=== PATIENT | male | born 1955 | race Caucasian/White ===

== ENCOUNTER 2020-09-24 02:23 | Observation (INO) ==
[2020-09-24] MEDS ORDERED: Ondansetron 4 MG/2 ML VIAL IVP PRN (05:44)
[2020-09-24] MEDS ORDERED: Naloxone 0.4 MG/ML INJ IVP PRN (05:44)
[2020-09-24] MEDS ORDERED: Melatonin 3 MG TABLET PO PRN (05:44)
[2020-09-24] MEDS ORDERED: Acetaminophen 325 MG TABLET PO PRN (05:44)
[2020-09-24] MEDS ORDERED: *HR* HYDROcodone/Acet 5/325 mg TABLET PO PRN (06:00)
[2020-09-24] MEDS ORDERED: *HR* Dextrose 50 % in Water (Vial) 50 ML VIAL IVP PRN (06:05)
[2020-09-24] MEDS ORDERED: Dextrose Gel 15 GM/37.5 ML TUBE PO PRN ×2 (06:05)
[2020-09-24] MEDS ORDERED: D5% in Water 1,000 ML IVC PRN (06:05)
[2020-09-24 06:49] LABS: INR 3.2; Prothrombin Time 35.9 Seconds (9.4-12.1)
[2020-09-24] MEDS: Furosemide 40 MG TABLET PO SCH (08:27)
[2020-09-24] MEDS: *HR* LORazepam 1 MG TABLET PO SCH ×3 (08:27→21:26)
[2020-09-24] MEDS: FLUoxetine 20 MG CAPSULE PO SCH (08:28)
[2020-09-24] MEDS: Spironolactone 25 MG TABLET PO SCH (08:28)
[2020-09-24] MEDS: Metoprolol XL (24 HR) Succ 50 MG TAB.ER.24H PO SCH (08:28)
[2020-09-24] MEDS: *HR* OxyCODONE Immed Rel 5 MG TABLET PO PRN (08:35)
[2020-09-24 11:19] LABS: Hematocrit 35.9 % (37.5-50.1); Hemoglobin 10.6 g/dL (12.9-16.9); Mean Corpuscular HGB Conc 29.5 g/dL (31.6-35.5); Mean Corpuscular Hemoglobin 21.4 pg (28.0-33.3); Mean Corpuscular Volume 72.5 fL (83.0-100.0); Platelet Count 285 K/mcL (140-400); Red Blood Count 4.95 M/mcL (4.19-5.50); Red Cell Distribution Width 18.2 % (11.5-14.5); White Blood Count 10.2 K/mcL (4.3-11.1)
[2020-09-24 11:42] LABS: % Iron Saturation 6 % (20-55); Alanine Aminotransferase 37 Units/L (7-52); Albumin 4.2 g/dL (3.5-5.7); Albumin/Globulin Ratio 1.2 (1.1-2.2); Alkaline Phosphatase 106 Units/L (34-104); Aspartate Amino Transferase 46 Units/L (13-39); BUN/Creatinine Ratio 17 (6-26); Bilirubin,Direct 0.2 mg/dL (0.0-0.2); Bilirubin,Indirect 0.7 mg/dL (0.0-1.0); Bilirubin,Total 0.9 mg/dL (0.3-1.0); Blood Urea Nitrogen 20 mg/dL (8-23); Calcium 9.3 mg/dL (8.6-10.3); Carbon Dioxide 24 mEq/L (23-29); Chloride 106 mEq/L (98-107); Globulin 3.5 g/dL (2.4-3.5); Glucose 160 mg/dL (70-105); Iron 32 mcg/dL (65-175); Magnesium 1.9 mg/dL (1.6-2.6); Osmolality,Calculated 292 (280-300); Phosphorous 2.1 mg/dL (2.7-4.5); Potassium 4.4 mEq/L (3.5-5.1); Sodium 138 mEq/L (136-145); Total Protein 7.7 g/dL (6.4-8.9); Transferrin 363 mg/dL (203-362); eGFR For African Americans > 60 (> 60); eGFR For Non-African Americans > 60 (> 60)
[2020-09-24 12:00] LABS: Ferritin 18 ng/mL (20-250)
[2020-09-24] MEDS: Insulin LISPRO 300 UNITS/3 ML VIAL SUBQ SCH ×2 (12:01→19:24)
[2020-09-24] MEDS ORDERED: Aspirin 81 MG TAB.CHEW PO SCH (16:30)
[2020-09-24] MEDS ORDERED: Warfarin perPT PO PRN (18:00)
[2020-09-25] MEDS: Insulin LISPRO 300 UNITS/3 ML VIAL SUBQ SCH ×4 (00:45→18:04)
[2020-09-25 01:51] LABS: Hematocrit 33.2 % (37.5-50.1); Hemoglobin 9.7 g/dL (12.9-16.9); Mean Corpuscular HGB Conc 29.2 g/dL (31.6-35.5); Mean Corpuscular Hemoglobin 21.1 pg (28.0-33.3); Mean Corpuscular Volume 72.2 fL (83.0-100.0); Mean Platelet Volume 10.4 fL (9.4-12.4); Platelet Count 279 K/mcL (140-400); Red Cell Distribution Width 18.3 % (11.5-14.5); White Blood Count 13.1 K/mcL (4.3-11.1)
[2020-09-25 02:03] LABS: INR 3.5; Prothrombin Time 38.6 Seconds (9.4-12.1)
[2020-09-25 02:05] LABS: BUN/Creatinine Ratio 20 (6-26); Blood Urea Nitrogen 22 mg/dL (8-23); Calcium 8.6 mg/dL (8.6-10.3); Carbon Dioxide 23 mEq/L (23-29); Chloride 105 mEq/L (98-107); Glucose 120 mg/dL (70-105); Osmolality,Calculated 289 (280-300); Potassium 4.2 mEq/L (3.5-5.1); Sodium 137 mEq/L (136-145); eGFR For African Americans > 60 (> 60); eGFR For Non-African Americans > 60 (> 60)
[2020-09-25] MEDS: Furosemide 40 MG TABLET PO SCH (09:03)
[2020-09-25] MEDS: FLUoxetine 20 MG CAPSULE PO SCH (09:03)
[2020-09-25] MEDS: Metoprolol XL (24 HR) Succ 50 MG TAB.ER.24H PO SCH (09:03)
[2020-09-25] MEDS: *HR* OxyCODONE Immed Rel 5 MG TABLET PO PRN ×2 (09:03→17:12)
[2020-09-25] MEDS: *HR* LORazepam 1 MG TABLET PO SCH ×3 (09:04→20:16)
[2020-09-25] MEDS: Spironolactone 25 MG TABLET PO SCH (09:04)
[2020-09-25] MEDS ORDERED: *HR* Heparin 5,000 UNIT/ML VIAL IVP PRN ×2 (13:06)
[2020-09-25] MEDS: Heparin 25,000UNIT/250ML 1/2NS 25,000 UNIT/250 ML IV.SOLN IVC SCH (14:48)
[2020-09-25] MEDS ORDERED: *HR* Warfarin 3 MG TABLET PO ONE (18:00)
[2020-09-26] MEDS: *HR* OxyCODONE Immed Rel 5 MG TABLET PO PRN ×2 (00:17→12:13)
[2020-09-26] MEDS: Insulin LISPRO 300 UNITS/3 ML VIAL SUBQ SCH ×3 (01:33→12:27)
[2020-09-26 02:04] LABS: Basophils % 0.3 %; Eosinophils # 0.1 K/mcL (0.0-0.6); Eosinophils % 0.9 %; Hemoglobin 9.6 g/dL (12.9-16.9); Immature Granulocytes % 0.7 % (0-4); Lymphocytes % 28.6 %; Mean Corpuscular HGB Conc 29.1 g/dL (31.6-35.5); Mean Corpuscular Hemoglobin 21.4 pg (28.0-33.3); Mean Corpuscular Volume 73.7 fL (83.0-100.0); Monocytes # 0.9 K/mcL (0.0-1.3); Monocytes % 8.8 %; Neutrophils # 6.4 K/mcL (1.6-8.9); Platelet Count 244 K/mcL (140-400); Red Blood Count 4.48 M/mcL (4.19-5.50); Red Cell Distribution Width 18.2 % (11.5-14.5); Segmented Neutrophils % 60.7 %; White Blood Count 10.5 K/mcL (4.3-11.1)
[2020-09-26 02:23] LABS: Heparin anti-factor XA UFH 0.31 IU/mL (0.30-0.70); INR 3.8; Prothrombin Time 42.5 Seconds (9.4-12.1)
[2020-09-26 02:24] LABS: BUN/Creatinine Ratio 25 (6-26); Blood Urea Nitrogen 25 mg/dL (8-23); Calcium 8.5 mg/dL (8.6-10.3); Carbon Dioxide 24 mEq/L (23-29); Chloride 107 mEq/L (98-107); Glucose 115 mg/dL (70-105); Osmolality,Calculated 291 (280-300); Sodium 138 mEq/L (136-145); eGFR For African Americans > 60 (> 60); eGFR For Non-African Americans > 60 (> 60)
[2020-09-26 07:37] VITALS: BP 145/87
[2020-09-26] MEDS: Heparin 25,000UNIT/250ML 1/2NS 25,000 UNIT/250 ML IV.SOLN IVC SCH (08:04)
[2020-09-26] MEDS: *HR* LORazepam 1 MG TABLET PO SCH (08:05)
[2020-09-26] MEDS: Metoprolol XL (24 HR) Succ 50 MG TAB.ER.24H PO SCH (08:05)
[2020-09-26] MEDS: Furosemide 40 MG TABLET PO SCH (08:05)
[2020-09-26] MEDS: FLUoxetine 20 MG CAPSULE PO SCH (08:05)
[2020-09-26] MEDS: Spironolactone 25 MG TABLET PO SCH (08:05)
== END 2020-09-26 15:45 | disposition home health service (06) ==
LOC: 3NENU
PROVIDERS: ADMIT Internal Medicine; ATTEND Internal Medicine